=== PATIENT | female | born 1970 | race African-American/Black ===

== ENCOUNTER 2016-07-26 02:02 | Emergency (ER) | payer OTHER ==
--- NOTE | ~2016-07-26 | CT4 ---
[facility] A Service of [facility] & [facility] RADIOLOGY TEXT RESULTS PATIENT: PAUL SENA LOCATION: [facility] : 74 UNIT #: [id number] AGE: [address]: Matthew Hyde MD SEX: F ORDER DR: [id number] [facility] [address] [place], [place] [address] [id number] MR#: [id number] Acc #: [id number] NAME: PAUL SENA : 1970 SEX: F STUDY DATE/TIME: 07/26/2016 2:15 UNIT: [facility] ROOM: STUDY DESCRIPTION: CT Abd and Pelv Wo Cont Attending Physician: Matthew Hyde M.D. Ordering Physician: Matthew Hyde M.D. Primary Care Physician: Primary Care Physician No MEDICAL IMAGING REPORT This report is preliminary unless electronic signature is present EXAM CT abdomen and pelvis without contrast DATE 07/26/2016 HISTORY Right upper abdominal pain with nausea and vomiting for 3 days. History of gastroesophageal reflux disease, ulcers. Previous appendectomy, section, ovarian removal, hysterectomy. COMPARISON CT abdomen and pelvis without contrast 02/15/2014 PROCEDURE 3 mm noncontrast axial images through the abdomen and pelvis. Enteric contrast was not administered. Sagittal and coronal reformatted images were obtained. This CT exam was performed with one or more of the following radiation dose reduction techniques: Automatic exposure control, adjustment of mA and/or kV according to patient size, and iterative reconstruction. FINDINGS ABDOMEN FINDINGS: Lung bases are free of consolidation. Cholecystectomy. Noncontrast appearance of the liver, spleen, pancreas, right adrenal and both kidneys are within normal limits. Low-density left adrenal nodule (Hounsfield units -11.5) in keeping with benign adenoma, unchanged, measuring approximately 2 cm. No renal or ureteral stone, hydronephrosis or hydroureter is seen. Appendectomy. Limited evaluation of bowel due to lack of enteric contrast, but no focal bowel inflammation is seen. PELVIS FINDINGS: 1.9 cm left ovarian cyst. Uterus, urinary bladder and rectum are within normal limits. No pelvic adenopathy or free fluid is STS. [facility] A Service of [facility] & [facility] RADIOLOGY TEXT RESULTS PATIENT: PAUL SENA LOCATION: [facility] #: [id number] : 74 UNIT #: [id number] AGE: [address]: Matthew Hyde MD SEX: F ORDER DR: identified. No acute osseous abnormalities are seen. IMPRESSION 1. No acute findings in the abdomen or pelvis. No CT explanation for the patient's right upper abdominal pain. 2. Cholecystectomy. 3. Stable left adrenal adenoma. 4. 1.9 cm left ovarian cyst. 5. Appendectomy. Dictated by... Adela Eason M.D. THIS IS AN ELECTRONICALLY VERIFIED REPORT Adela Eason M.D. at 07/26/2016 10:01 PM CHANTELLE/abisai TD: 07/26/2016 03:46 JOB #: [id number] MEDICAL IMAGING REPORT Page 1 of 1 COPY
[2016-07-26 01:51] LABS: URINE SOURCE CLEAN CATCH
[2016-07-26 01:58] LABS: URINE APPEARANCE CLEAR; URINE BILIRUBIN NEG (NEG); URINE BLOOD NEG (NEG); URINE COLOR YELLOW; URINE GLUCOSE >1000 MG/DL (NEG); URINE KETONE TRACE (NEG); URINE LEUKOCYTE ESTERASE NEG (NEG); URINE NITRATE NEG (NEG); URINE PROTEIN 1+ (NEG); URINE SPECIFIC GRAVITY 1.026 (1.003-1.035)
[2016-07-26 02:01] LABS: U HYALINE CASTS AUWI 0-2 /[LPF]; URBCS1 AUWI 0-2 /[HPF] (0-2); URINE BACTERIA AUWI NEG (NEGATIVE); URINE SQUAMOUS EPITHELIAL CELL NONE SEEN /[HPF]; UWBCS1 AUWI 0-2 (0-5)
[~2016-07-26 02:02] MED LIST: ACETAMINOPHEN; ACETAMINOPHEN PO; ACETAMINOPHEN325 MG PO; APRESOLINE; ASPIRIN325 M1 PO; ATARAX PO; AURALGAN EAR DR14 ML; BENADRYL ALLERG1 TAB; BENADRYL25 M1 PO; BENADRYL25 MG PO; BROMFED PO; CARAFATE PO; CARDIZEM SR PO; CARVEDILOL6.25 MG PO; CATAPRES-TTS-20.2 MG EXT; CATAPRES-TTS-20.2 MG PO; CATAPRES0.1 MG PO; CATAPRES0.3 MG PO; CIPRO PO; CLONIDINE HCL0.3 MG PO; CLONIDINE PO; CLONIDINE TOP; CYMBALTA PO; DIAZEPAM PO; DICYCLOMINE HCL20 MG PO; DILAUDID IVP; FLONASE16 GM; GLUCOPHAGE500 M1 PO; HYDROCODONE-APA1 T30 PO; IRON; IRON1 TA1 PO; JANUVIA PO; JANUVIA100 MG PO; LANTUS100 U/M1 SUBQ; LANTUS100 U/ML; LASIX PO; LASIX20 MG PO; LOPRESSOR; LORTAB 10-5001 EACH; LORTAB 10/500 T1 TAB PO; LORTAB 5/500 TA1 TA1 PO; LORTAB 7.5-5001 TAB PO; MACROBID 100 M100 MG PO; MACRODANTIN PO; MAXALT MLT10 MG/TAB; MAXALT MLT10 MG/TAB PO; METFORMIN PO; METOPROLOL SUCC25 MG PO; MICRO-K10 MEQ PO; MUCINEX D ER T1 EAC1 PO; NEURONTIN300 MG PO; NEXIUM PO; NITROGLYGERIN0.4 MG SL; NORVASC PO; OMNICEF PO; PHENERGAN PO; PHENERGAN PR; PHENERGAN SUPP25 MG PR; PHENERGAN12.5 MG/SU RC; PHENERGAN25 MG PO; PHENERGAN25 MG/1 ML IVP; PREVACID15 MG PO; PREVPAC PA1 COMB.PKG PO; PRILOSEC; PRILOSEC PO; ROBAXIN 750750 M1 PO; ROBAXIN500 MG PO; ROCEPHIN1 G/VIAL IV; TOPAMAX; TOPROL XL PO; TRIAMCINOLONE A15 G3 TD; TYLOX 5/500 CAP1 CAP PO; VICODIN 5/1 TAB 5/50 PO; VICODIN 5/500 T1 TAB PO; VIT D PO; VITAMIN D400 UNI2; VOLTAREN50 MG PO
[2016-07-26 02:05] LABS: CULTURE INDICATED? NO
[2016-07-26 02:59] LABS: BASOPHIL# 0.1 X10e3 (0-0.3); BASOPHIL% 1.1 % (0-2.5); DIFF IND NO; EOSINOPHIL# 0.2 X10e3 (0-0.7); EOSINOPHIL% 1.8 % (0.0-7.0); HEMATOCRIT 38.8 % (35.0-45.0); HEMOGLOBIN 12.6 gm/dL (12.0-16.0); LYMPHOCYTE# 3.8 X10e3 (1.0-3.5); LYMPHOCYTE% 43.9 % (17.0-45.0); MEAN CELL VOLUME 88.3 FL (83-96); MEAN CORPUSCULAR HEMOGLOBIN 28.7 PG (28-34); MEAN CORPUSCULAR HGB CONC 32.5 g/dL (30-36); MEAN PLATELET VOLUME 9.1 FL (6.5-11.5); MONOCYTE# 0.6 X10e3 (0-1.0); MONOCYTE% 7.5 % (3.0-12.0); NEUTROPHIL# 3.9 X10e3 (1.5-7.1); NEUTROPHIL% 45.7 % (40-75); PLATELET COUNT 207 X10e3 (140-420); RED BLOOD COUNT 4.39 X10e (3.90-5.30); RED CELL DISTRIBUTION WIDTH 13.6 % (11.0-15.5); WHITE BLOOD COUNT 8.6 X10e3 (4.0-10.5)
[2016-07-26 03:26] LABS: ALBUMIN SERUM 3.9 g/dL (3.5-5.0); BILIRUBIN,TOTAL 0.5 mg/dL (0.2-2.0); CALCIUM SERUM 9.1 mg/dL (8.4-10.2); CREATININE SERUM 0.5 mg/dL (0.6-1.4); GLOM FILT RATE Estimated 136.4 mL/min (>60); POTASSIUM 3.2 mmol/L (3.5-5.1); PROTEIN TOTAL SERUM 6.9 g/dL (6.0-8.3)
[2016-07-26 03:27] LABS: BILIRUBIN, DIRECT 0.1 mg/dL (0.0-0.2); BILIRUBIN,INDIRECT 0.4 mg/dL (0.0-0.9)
== END 2016-07-26 03:40 | disposition home or self-care (01) ==
LOC: CED 02:02
PROVIDERS: Emergency Medicine
DX: R10.11 Right upper quadrant pain (principal); R11.2 Nausea with vomiting, unspecified; K21.9 Gastro-esophageal reflux disease without esophagitis; E11.9 Type 2 diabetes mellitus without complications; I10 Essential (primary) hypertension; G43.909 Migraine, unspecified, not intractable, without status migrainosus; Z90.49 Acquired absence of other specified parts of digestive tract; Z90.710 Acquired absence of both cervix and uterus; Z98.890 Other specified postprocedural states; Z76.5 Malingerer [conscious simulation]; Z88.8 Allergy status to other drugs, medicaments and biological substances; Z88.6 Allergy status to analgesic agent; Z88.1 Allergy status to other antibiotic agents; Z88.2 Allergy status to sulfonamides; Z88.5 Allergy status to narcotic agent
CPT/HCPCS: 36415; 74176; 80048; 80076; 81003; 82947; 83690; 84703; 85025; 96372; 96374; 96375; 99284; J0500; J2550